=== PATIENT | male | born 1940 | race Caucasian/White ===

== ENCOUNTER 2018-07-16 19:55 | Emergency (ER) | payer OTHER ==
[~2018-07-16] VITALS: Ht 175.3 cm; Wt 93.0 kg
[2018-07-16] MEDS ORDERED: MAXZIDE-25 MG1 EACH PO (20:14)
[2018-07-16] MEDS ORDERED: AMLODIPINE BESY10 MG PO (20:14)
[2018-07-16] MEDS ORDERED: CARVEDILOL12.5 MG PO (20:15)
[2018-07-16] MEDS ORDERED: SEROQUEL 50 MG50 MG PO (20:16)
[2018-07-16] MEDS ORDERED: ASPIRIN81 M2 PO (20:17)
[2018-07-16] MEDS ORDERED: KEFLEX500 M1 PO (21:17)
[2018-07-16 21:41] VITALS: BP 171/79
== END 2018-07-16 21:41 | disposition home or self-care (01) ==
LOC: M.ERS 19:55
DX: H66.93 Otitis media, unspecified, bilateral (principal); I10 Essential (primary) hypertension